=== PATIENT | female | born 1940 | race Caucasian/White ===

== ENCOUNTER 2022-02-22 18:43 | Inpatient (IN) | payer MEDICARE, OTHER ==
[~2022-02-22] VITALS: Ht 162.6 cm; Wt 72.1 kg
[2022-02-22] MEDS ORDERED: IV NORMAL SALINE 1000 ML BAG IV ONE (19:15)
[2022-02-22 20:42] LABS: MEAN CORPUSCULAR HEMOGLOBIN 28.3 uug (24.7-32.8); MEAN CORPUSCULAR VOLUME 83.8 fL (75.5-95.3); PLATELET COUNT (AUTO) 219 K/uL (179-408)
[2022-02-22 21:02] LABS: CARBON DIOXIDE 27 mmol/L (21-32); CHLORIDE 104 mmol/L (98-107); GLUCOSE 141 mg/dL (74-106); POTASSIUM 4.1 mmol/L (3.5-5.1); UREA NITROGEN, BLOOD 15 mg/dL (7-18)
[2022-02-22 21:14] LABS: ALANINE AMINOTRANSFERASE 14 U/L (14-59); ALKALINE PHOSPHATASE 69 U/L (50-136); ASPARTATE AMINOTRANSFERASE 13 U/L (15-37); BILIRUBIN,DIRECT < 0.1 mg/dL (0.0-0.2); BILIRUBIN,TOTAL 0.3 mg/dL (0.2-1.0); LIPASE 70 U/L (73-393); TOTAL PROTEIN, SERUM 6.5 g/dL (6.4-8.2)
[2022-02-22 21:58] LABS: *BILIRUBIN,URIN NEGATIVE (NEGATIVE); *BLOOD, URINE NEGATIVE (NEGATIVE); *CLARITY,URINE CLEAR (CLEAR); *COLOR,URINE YELLOW (YELLOW); *KETONES,URINE NEGATIVE (NEGATIVE); *UROBILINOGEN,URINE 0.2 E.U./dl (NORMAL); NITRITE, URINE NEGATIVE (NEGATIVE); PH,URINE 6.5 (5.0-8.0); UGLUCOSE NEGATIVE (NEGATIVE)
[2022-02-22 22:40] LABS: LEUKOCYTE ESTERASE ,URINE NEGATIVE (NEGATIVE)
[2022-02-22] MEDS: MAGNESIUM SULFATE/D5W 100 ML IV SCH (23:15)
[2022-02-23] MEDS ORDERED: MORPHINE SULFATE 2 MG/1 ML DISP.SYRIN IV PRN (00:45)
[2022-02-23] MEDS ORDERED: hydrALAZINE HCL 20 MG/1 ML VIAL IV PRN (00:45)
[2022-02-23] MEDS ORDERED: ONDANSETRON 4 MG/2 ML VIAL IV PRN (00:45)
[2022-02-23] MEDS: DOCUSATE SODIUM 100 MG CAPSULE PO SCH ×2 (00:45→09:00)
[2022-02-23] MEDS ORDERED: ACETAMINOPHEN 325 MG TABLET PO PRN (00:45)
[2022-02-23] MEDS ORDERED: EZET10TA15 PO (00:59)
[2022-02-23] MEDS ORDERED: ALEN70TA80 PO (00:59)
[2022-02-23] MEDS ORDERED: APIX5TAB4 PO (00:59)
[2022-02-23] MEDS ORDERED: LEVO112T5 PO (00:59)
[2022-02-23] MEDS ORDERED: EVOL140P3 SUBCUT (00:59)
[2022-02-23] MEDS ORDERED: METF-440 PO (00:59)
[2022-02-23] MEDS ORDERED: VIT500TA8 PO (00:59)
[2022-02-23] MEDS ORDERED: LOSA100T31 PO (00:59)
[2022-02-23] MEDS ORDERED: AMLO-212 PO (00:59)
[2022-02-23] MEDS ORDERED: MECO10005 PO (00:59)
[2022-02-23] MEDS ORDERED: DEXTROSE 50% 50 ML DISP.SYRIN IV PRN (01:00)
[2022-02-23] MEDS ORDERED: INSULIN REGULAR, HUMAN 300 UNIT/3 ML VIAL SQ PRN (01:00)
[2022-02-23] MEDS ORDERED: DOCUSATE SODIUM 100 MG CAPSULE PO ONE (01:01)
[2022-02-23] MEDS: MAGNESIUM SULFATE/D5W 100 ML IV SCH (01:13)
[2022-02-23 06:47] VITALS: BP 147/78
[2022-02-23] MEDS ORDERED: LEVOTHYROXINE SODIUM 112 MCG TABLET PO SCH (07:00)
--- NOTE | 2022-02-23 07:29 | NUR ---
RECEIVED REPORT FROM PARMINDER IN THE ER PT WAS USING BATHROOM HAVING STARTED HAVING DIARRHEA AND ABOMINAL PAIN CALLED SON TOOK HER TO HOSPITAL. PT ARRIVED ON UNIT AT 0630 AM REPORT GIVEN TO NURSE GATITO PT BLOOD SUGAR THIS AM 106 AND NO COVERAGE AND NO DIABETIC REACTON NOTED.PT WAS GIVEN 0700 MEDICATION PT IS ON TELEMONITOR WHICH SHOWS SR 73. ALL INFORMATION ENDORSED TO AM NURSE.
[2022-02-23] MEDS ORDERED: BLOOD SUGAR DIAGNOSTIC 1 EACH STRIP VI SCH (07:30)
[2022-02-23] MEDS ORDERED: HEPARIN SODIUM,PORCINE 5,000 UNITS/ML VIAL SQ SCH (09:00)
[2022-02-23] MEDS ORDERED: AMLODIPINE 5 MG TABLET PO SCH (09:00)
[2022-02-23] MEDS ORDERED: LOSARTAN POTASSIUM 50 MG TABLET PO SCH (09:00)
--- NOTE | 2022-02-23 09:12 | NUR ---
pt was seen by brand lead
[2022-02-23 09:18] VITALS: BP 119/49
[2022-02-23] MEDS ORDERED: DICY10CA13 PO (10:23)
[2022-02-23] MEDS ORDERED: ONDA4TAB11 PO (10:23)
--- NOTE | 2022-02-23 10:50 | NUR ---
pt is discharge. pt is ambulatory. no complain of dizziness. pt will go home. exit care provided. all belongings accounted for. pt will be accompanied by son via private care. iv access removed.
== END 2022-02-23 10:50 | disposition home or self-care (01) | DRG 74 ==
LOC: ER 18:43 → TELE3 23:33
PROVIDERS: ADMIT Nurse Practitioner Family; ATTEND Nurse Practitioner Family
DX: G90.8 Other disorders of autonomic nervous system (principal); E87.20 Acidosis, unspecified; E44.1 Mild protein-calorie malnutrition; D64.9 Anemia, unspecified; E03.9 Hypothyroidism, unspecified; Z86.711 Personal history of pulmonary embolism; E88.09 Other disorders of plasma-protein metabolism, not elsewhere classified; I10 Essential (primary) hypertension; Z20.822 Contact with and (suspected) exposure to COVID-19; Z79.01 Long term (current) use of anticoagulants; Z85.820 Personal history of malignant melanoma of skin; I44.7 Left bundle-branch block, unspecified; Z79.84 Long term (current) use of oral hypoglycemic drugs; R10.9 Unspecified abdominal pain; Z68.27 Body mass index [BMI] 27.0-27.9, adult; Z87.19 Personal history of other diseases of the digestive system
CPT/HCPCS: 36415; 71045; 83605; 83690; 84443; 84484; 85025; 87040; 93005; A4663; G0378; J1815; J3475; J7040